=== PATIENT | male | born 1965 | race Caucasian/White ===

== ENCOUNTER 2022-12-27 13:02 | Outpatient (CLI) | payer BC, SELFPAY | END 2022-12-27 13:03 | disposition home or self-care (01) | LOC: FRMREF 13:04 | PROVIDERS: PCP Family Medicine; Visit Provider Family Medicine | DX: Z00.00 Encounter for general adult medical examination without abnormal findings (principal); E78.5 Hyperlipidemia, unspecified; M25.50 Pain in unspecified joint; Z12.5 Encounter for screening for malignant neoplasm of prostate | CPT/HCPCS: 80053; 80061; 84153; 85610; 85613; 85730; 86039; 86140; 86431 ==

== ENCOUNTER 2022-12-27 13:02 | Outpatient (CLI) | payer BC, SELFPAY | END 2022-12-27 13:03 | disposition home or self-care (01) | PROVIDERS: PCP Family Medicine; Visit Provider Family Medicine | DX: Z00.00 Encounter for general adult medical examination without abnormal findings (principal); E78.5 Hyperlipidemia, unspecified; M25.50 Pain in unspecified joint | CPT/HCPCS: 83018 ==

== ENCOUNTER 2023-07-12 12:20 | Outpatient (REF) | payer BC, SELFPAY ==
[2023-07-12 12:38] LABS: Basophils Absolute Auto 0.03 K/uL (0.00-0.30); Basophils Percent Auto 0.4 % (0.0-3.0); Eosinophils Absolute Auto 0.22 K/uL (0.00-0.50); Eosinophils Percent Auto 2.8 % (0.0-7.0); Hematocrit 46.2 % (37.0-53.0); Hemoglobin* 14.4 gm/dL (13.5-17.5); Immature Granulocytes Abs Auto 0.05 K/uL (0.00-0.30); Immature Granulocytes Pct Auto 0.6 %; Lymphocytes Absolute Auto 1.91 K/uL (0.90-2.90); Lymphocytes Percent Auto 24.3 % (20-44); Mean Corpuscular HGB Conc 31 gm/dL (32-36); Mean Corpuscular Hemoglobin 26 pg (26-34); Mean Corpuscular Volume 84 fL (80-100); Monocytes Percent Auto 12.5 % (0.0-11.0); Neutrophils Absolute Auto 4.66 K/uL (1.7-7.0); Neutrophils Percent Auto 59.4 % (42.0-72.0); Platelet Count* 263 K/uL (140-440); RDW Coefficient of Variation % 13.8 % (11.5-15.5); White Blood Count* 7.85 K/uL (4.50-11.00)
[2023-07-12 12:53] LABS: Slide Review Reflex No
[2023-07-12 12:54] LABS: C Reactive Protein* < 0.5 mg/dL (0.5-1.0)
[2023-07-12 13:20] LABS: Erythrocyte SedimentationRate* 3 mm/hr (2-15)
== END 2023-07-12 12:21 | disposition home or self-care (01) ==
LOC: NPINS 12:20
PROVIDERS: PCP Family Medicine; Visit Provider Student in an Organized Health Care Education/Training Program
DX: M25.562 Pain in left knee (principal)
CPT/HCPCS: 85025; 85651; 86140

== ENCOUNTER 2023-08-05 13:45 | Outpatient (RCR) | payer BC, SELFPAY | END 2023-10-07 16:22 | disposition home or self-care (01) | PROVIDERS: PCP Family Medicine; Visit Provider Physician Assistant | DX: S39.012A Strain of muscle, fascia and tendon of lower back, initial encounter (principal); R53.1 Weakness; R52 Pain, unspecified; Z51.89 Encounter for other specified aftercare | CPT/HCPCS: 97032; 97110; 97140; 97161 ==

== ENCOUNTER 2023-11-01 09:58 | Emergency (ER) | payer BC, SELFPAY ==
[2023-11-01 10:04] VITALS: BP 140/85; PULSE 60; RESP 18; TEMP 35.1; O2SAT 98; BMI 33.0
--- NOTE | 2023-11-01 10:04 | ED.GENADULT ---
HPI - General Adult General Time Seen by Provider: 10:04 Date Seen: 11/01/23 Chief complaint: Abdominal Pain Stated complaint: Abdominal pain Time Seen by Provider: 11/01/23 10:03 Source: patient, RN notes reviewed and old records reviewed Mode of arrival: ambulatory Limitations: no limitations History of Present Illness HPI narrative: 58-year-old male who presents today with abdominal pain. Patient presents with right upper quadrant abdominal pain starting earlier today. Nausea with no vomiting, had some diarrhea yesterday. No shortness of breath, no fevers, occasional alcohol use. Related Data Home Medications ?Medication ?Instructions ?Recorded ?Confirmed gljaspxhsoka-ejtonffd-mcglch tablet 1 tab PO QDAY 12/27/22 12/27/22 Previous Rx's ?Medication ?Instructions ?Recorded methocarbamol 500 mg tablet 500 - 1,000 mg (1 - 2 x 500 mg) PO 12/27/22 QID PRN muscle spasm #60 tabs prednisone 20 mg tablet 20 mg PO .COMPLEX #20 tabs 12/27/22 ezetimibe 10 mg tablet (Zetia) 10 mg PO QDAY #90 tabs 12/28/22 ondansetron 4 mg disintegrating 4 mg PO Q6H PRN nausea and 11/01/23 tablet vomiting #20 tabs oxycodone 5 mg capsule 5 mg PO Q6H PRN pain #10 caps 11/01/23 Allergies Allergy/AdvReac Type Severity Reaction Status Date / Time No Known Drug Allergies Allergy Verified 11/01/23 11:57 PFSH PFSH Medical History (Updated 11/01/23 @ 12:04 by Mega Benito MD) Back pain ?M54.9 - Dorsalgia, unspecified (ICD-10) Polyarthralgia ?M25.50 - Pain in unspecified joint (ICD-10) Superficial thrombophlebitis ?I80.9 - Phlebitis and thrombophlebitis of unspecified site (ICD-10) Surgical History (Updated 12/27/22 @ 13:29 by Aamir Osuna MD) Hx of neck surgery ?Z98.890 - Other specified postprocedural states (ICD-10) History of arthroscopy of left knee (11/15/04) ?Z98.890 - Other specified postprocedural states (ICD-10) History of arthroscopy of right shoulder (07/20/13) ?Z98.890 - Other specified postprocedural states (ICD-10) History of arthroplasty of left knee (04/03/17) ?Z96.652 - Presence of left artificial knee joint (ICD-10) Status post laparoscopic appendectomy (05/19/16) ?Z90.49 - Acquired absence of other specified parts of digestive tract (ICD-10) History of colonoscopy ?Z98.890 - Other specified postprocedural states (ICD-10) Family History (Updated 12/20/22 @ 09:10 by Roberto Carlos Kessler) Father Pancreatic cancer Other Breast cancer Social History (Updated 12/20/22 @ 09:10 by Roberto Carlos Kessler) Narrative: alcohol ingestion, 1-4 drinks/week does not use illicit drugs nonsmoker Smoking Status: Never smoker Do you use any of these nicotine containing products: None Second hand tobacco smoke exposure: No How often do you have a drink containing alcohol: 2-4 times a month How many standard drinks containing alcohol do you have on a typical day: 1 or 2 How often do you have six or more drinks on one occasion: Less than monthly AUDIT-C Alcohol total score: 3 Non-prescribed substance use: denies use Little interest or pleasure in doing things: several days Feeling down, depressed, or hopeless: not at all service: No Exam Narrative: Exam Narrative: General: Well-developed and well-nourished, no acute distress Head: Atraumatic and normocephalic Eyes: Pupils are equal reactive, extraocular motions intact, conjunctiva clear ENT: External nose and ears are normal, posterior pharynx without erythema or exudate Neck: No midline cervical tenderness, full spontaneous range of motion the neck, trachea midline, no adenopathy Heart: Regular rate and rhythm no murmurs or thrills Lungs: Clear to auscultation bilaterally without wheezes or crackles Abdomen: Soft, right upper quadrant tenderness, nondistended with active bowel sounds Musculoskeletal: No tenderness, deformity, or edema Neurologic: Awake, alert, and oriented x3, no gross focal neurologic deficits, cranial nerves intact as tested Psych: Mood and affect are appropriate Skin: No rashes Const: Vital Signs, click to edit/add: Vital Signs - 24 hr 11/01/23 10:04 11/01/23 13:47 Temperature 95.1 F L Pulse Rate [Femora l] 60 72 Respiratory Rate 18 18 Blood Pressure [Ri t Upper Arm] 140/85 H 131/81 Pulse Oximetry 98 96 Oxygen Delivery Me thod Room Air Room Air Course Course ED Course: Reviewed most recent office visit from December 2022 which was an annual physical, was concerned about some right knee pain at that time, also reviewed prior history which shows history of appendectomy, left knee replacement, also prior colonoscopy. At that time did admit to not drinking alcohol multiple days a week. Patient presents today with right upper quadrant pain. Marked tenderness of the right upper quadrant although also has high-pitched bowel sounds. Labs are ordered along with CT scan of the abdomen pelvis, consider right upper quadrant ultrasound depending on clinical course and findings. Reevaluation(s) Time of Reevaluation #1: 11:33 Reevaluation #1: Labs ordered and independently interpreted by me with normal CBC, normal basic panel, normal hepatic panel, normal lipase. Time of Reevaluation #2: 11:59 Reevaluation #2: CT scan of the abdomen and pelvis interpreted by me demonstrates some liver cysts, also question of some atelectasis in the lower lobes of the lungs, gallbladder with gallstones. Time of Reevaluation #3: 12:30 Reevaluation #3: The patient rechecked, he remains comfortable, discussed plan for right upper quadrant ultrasound Additional Reevaluation(s): 1:39 p.m. reviewed radiology interpretation of ultrasound, cholelithiasis without acute cholecystitis. Patient is more comfortable now. We discussed symptomatic cholelithiasis. Patient has follow-up with General surgery next week to discuss elective cholecystectomy. Vital Signs Vital signs: Initial Vital Signs Temperature 95.1 F L 11/01/23 10:04 Temperature Source Temporal Artery Scan 11/01/23 10:04 Pulse Rate 60 11/01/23 10:04 Pulse Rhythm Regular 11/01/23 10:04 Respiratory Rate 18 11/01/23 10:04 Blood Pressure 140/85 H 11/01/23 10:04 Blood Pressure Mean 103 11/01/23 10:04 Blood Pressure Position Supine 11/01/23 10:04 Pulse Oximetry 98 11/01/23 10:04 Oxygen Delivery Method Room Air 11/01/23 10:04 Vital Signs Temperature 95.1 F L 11/01/23 10:04 Pulse Rate 60 11/01/23 10:04 Respiratory Rate 18 11/01/23 10:04 Blood Pressure 140/85 H 11/01/23 10:04 Pulse Oximetry 98 11/01/23 10:04 Oxygen Delivery Method Room Air 11/01/23 10:04 Temperature 95.1 F L 11/01/23 10:04 Pulse Rate 72 11/01/23 13:47 Respiratory Rate 18 11/01/23 13:47 Blood Pressure 131/81 11/01/23 13:47 Pulse Oximetry 96 11/01/23 13:47 Oxygen Delivery Method Room Air 11/01/23 13:47 Medications Administered Medications: Discontinued Medications Generic Name Dose Route Start Last Admin Trade Name Freq PRN Reason Stop Dose Admin Hydromorphone HCl 0.5 mg 11/01/23 10:16 11/01/23 10:43 Hydromorphone 0.5 Mg/0.5 Ml Inj IVP 11/01/23 10:17 0.5 mg ONCE ONE Administration Hydromorphone HCl 0.5 mg 11/01/23 11:45 11/01/23 12:14 Hydromorphone 0.5 Mg/0.5 Ml Inj IVP 11/01/23 11:46 0.5 mg ONCE ONE Administration Sodium Chloride 1,000 mls @ 1,000 mls/hr 11/01/23 10:30 11/01/23 11:39 0.9 % Sodium Chloride 1000 Ml IV 11/01/23 11:29 Infused .Q1H SIS Infusion Ondansetron HCl 4 mg 11/01/23 10:16 11/01/23 10:43 Ondansetron 2 Mg/Ml Inj IVP 11/01/23 10:17 4 mg ONCE ONE Administration Medical Decision Making Lab Data Labs: Lab Results 11/01/23 11/01/23 Range/Units 10:38 12:15 WBC 7.34 (4.50-11.00) K/uL RBC 5.21 (4.30-5.90) m/uL Hgb 14.4 (13.5-17.5) gm/dL Hct 43.9 (37.0-53.0) % MCV 84 (80-100) fL MCH 28 (26-34) pg MCHC 33 (32-36) gm/dL RDW Coeff of Leigha 13.8 (11.5-15.5) % Plt Count 223 (140-440) K/uL Neut % (Auto) 74.1 H (42.0-72.0) % Lymph % (Auto) 14.9 L (20-44) % Mcdonald % (Auto) 9.3 (0.0-11.0) % Eos % (Auto) 1.5 (0.0-7.0) % Baso % (Auto) 0.1 (0.0-3.0) % Neut # (Auto) 5.40 (1.7-7.0) K/uL Lymph # (Auto) 1.10 (0.90-2.90) K/uL Mcdonald # (Auto) 0.70 (0.00-0.90) K/UL Eos # (Auto) 0.11 (0.00-0.50) K/uL Baso # (Auto) 0.01 (0.00-0.30) K/uL Abs Immat Gran (auto) 0.01 (0.00-0.30) K/uL Imm/Tot Granulo (auto) 0.1 % Sodium 140 (135-149) mmol/L Potassium 4.2 (3.6-5.1) mmol/L Chloride 108 (96-114) mmol/L Carbon Dioxide 25 (20-32) mmol/L Anion Gap 7 (7-15) mEq/L BUN 17 (7-30) mg/dL Creatinine 1.1 (0.5-1.5) mg/dL Estimated Creat Clear 73.74 Estimated GFR 77 ml/min Glucose 124 H (60-115) mg/dL Calcium 9.5 (8.4-10.6) mg/dL Magnesium 2.1 (1.5-2.6) mg/dL Total Bilirubin 0.7 (0.1-1.5) mg/dL Direct Bilirubin 0.4 (0.0-0.5) mg/dL AST 31 (12-35) U/L ALT 21 (4-50) U/L Alkaline Phosphatase 63 (40-150) U/L Total Protein 7.0 (6.0-8.3) g/dL Albumin 4.5 (3.3-5.0) g/dL Lipase 189 (23-300) U/L Urine Color Yellow (Yellow) Urine Appearance Clear (Clear) Urine pH 5.5 (5.0-8.5) Ur Specific Lincoln 1.015 (1.000-1.030) Urine Protein Negative (Negative) Urine Glucose (UA) Negative (Negative) Urine Ketones Negative (Negative) Urine Blood Negative (Negative) Urine Nitrite Negative (Negative) Urine Bilirubin Negative (Negative) Urine Urobilinogen 0.2 (0.2-1.0) Ur Leukocyte Esterase Negative (Negative) Urine RBC 0-2 (0-2) Urine WBC 0-2 (0-5) Ur Squamous Epith Cells None (None-Few) Urine Bacteria None (None) Discharge Plan Discharge Clinical Impression: Symptomatic cholelithiasis Patient Disposition: Home w/ Parent or Adult Condition: Stable Instructions: Biliary Colic (ED), Gallstones (ED) Additional Instructions: Call [facility] to schedule an appointment to have your gallbladder removed Activity Level: No Restrictions Discharge Diet: Low Fat/Low Cholesterol Prescriptions: New oxycodone 5 mg capsule 5 mg PO Q6H PRN (Reason: pain) Qty: 10 0RF ondansetron 4 mg tablet,disintegrating 4 mg PO Q6H PRN (Reason: nausea and vomiting) Qty: 20 0RF No Action vcpesxwbuqlg-whwmbnjx-nipeis Tablet 1 tab PO QDAY prednisone 20 mg tablet 20 mg PO .COMPLEX Qty: 20 0RF Rx Instructions: 20 mg orally; 60 MG PO DAYS 1 -3, 40 MG DAYS 4-6, 20 MG DAYS 7-9 methocarbamol 500 mg tablet 500 - 1,000 mg PO QID PRN (Reason: muscle spasm) Qty: 60 1RF ezetimibe [Zetia] 10 mg tablet 10 mg PO QDAY Qty: 90 1RF Follow Up/Referrals: Aamir Osuna MD [Primary Care Provider] - Stand Alone Forms: [facility] Info Instructions
--- NOTE | 2023-11-01 10:16 | CRLHL7_ITS ---
For Patients: As a result of the Century Cures Act, medical imaging exams and procedure reports are released immediately into your electronic medical record. You may view this report before your referring provider. If you have questions, please contact your health care provider. INDICATION: RUQ PAIN TECHNIQUE: CT of the abdomen and pelvis was obtained with 112 mL of Isovue 370 intravenous contrast. Please note that all CT scans at this facility use dose modulation, iterative reconstruction, and/or weight-based dosing when appropriate to reduce radiation dose to as low as reasonably achievable. COMPARISON: 02/06/2018 FINDINGS: Lower thorax: Moderate bilateral dependent linear atelectasis. Redemonstration of 6 millimeter right minor fissure perifissural lymph node (3/6). Liver and biliary tree: Redemonstration of hepatic cysts measuring up to 3.2 centimeter in the right liver (2/27). Additional subcentimeter hypoattenuating lesions are too small to characterize and are favored to represent cysts. Gallbladder: Cholelithiasis. Spleen: Normal. Pancreas: Normal. Adrenal glands: Normal. Kidneys and ureters: No hydronephrosis. No obstructing renal calculi. Gastrointestinal tract: Status post appendectomy. No evidence of bowel obstruction. Peritoneal cavity: Normal. Bladder: Mild urinary bladder wall thickening. Pelvic organs: Normal. Vasculature: Normal. Lymph nodes: Normal. Abdominal wall: Trace fat containing periumbilical hernia. Musculoskeletal: Normal. IMPRESSION: 1. Cholelithiasis without CT evidence of acute cholecystitis. 2. Mild urinary bladder wall thickening. Consider correlation with urinalysis. Please note that all CT scans at this facility use dose modulation, iterative reconstruction, and/or weight-based dosing when appropriate to reduce radiation dose to as low as reasonably achievable. Dictated by Caleb Cobian MD @ 11/01/2023 12:19:34 PM (Electronically Signed)
[2023-11-01] MEDS: 0.9 % SODIUM CHLORIDE 1000 ml 1,000 ML IV (10:40)
[2023-11-01] MEDS: HYDROmorphone 0.5 mg/0.5 ml inj IVP ×2 (10:43→12:14)
[2023-11-01] MEDS: ONDANSETRON 2 MG/ML inj 4 MG IVP (10:43)
[2023-11-01 10:53] LABS: Basophils Absolute Auto 0.01 K/uL (0.00-0.30); Basophils Percent Auto 0.1 % (0.0-3.0); Eosinophils Absolute Auto 0.11 K/uL (0.00-0.50); Eosinophils Percent Auto 1.5 % (0.0-7.0); Hematocrit 43.9 % (37.0-53.0); Hemoglobin* 14.4 gm/dL (13.5-17.5); Immature Granulocytes Abs Auto 0.01 K/uL (0.00-0.30); Immature Granulocytes Pct Auto 0.1 %; Lymphocytes Percent Auto 14.9 % (20-44); Mean Corpuscular HGB Conc 33 gm/dL (32-36); Mean Corpuscular Hemoglobin 28 pg (26-34); Mean Corpuscular Volume 84 fL (80-100); Monocytes Percent Auto 9.3 % (0.0-11.0); Neutrophils Percent Auto 74.1 % (42.0-72.0); Platelet Count* 223 K/uL (140-440); RDW Coefficient of Variation % 13.8 % (11.5-15.5); Red Blood Count 5.21 m/uL (4.30-5.90); White Blood Count* 7.34 K/uL (4.50-11.00)
[2023-11-01 10:55] LABS: Slide Review Reflex No
[2023-11-01 11:05] LABS: Albumin* 4.5 g/dL (3.3-5.0); Chloride* 108 mmol/L (96-114)
[2023-11-01 11:06] LABS: Potassium* 4.2 mmol/L (3.6-5.1); Sodium* 140 mmol/L (135-149)
[2023-11-01 11:08] LABS: Anion Gap 7 mEq/L (7-15); Carbon Dioxide* 25 mmol/L (20-32); Creatinine* 1.1 mg/dL (0.5-1.5); Est. Creatinine Clearance* 73.74; Estimated Glomerular Filt Rate 77 ml/min
[2023-11-01 11:09] LABS: Alanine Aminotransferase* 21 U/L (4-50); Alkaline Phosphatase* 63 U/L (40-150); Aspartate Amino Transferase* 31 U/L (12-35); Bilirubin Direct* 0.4 mg/dL (0.0-0.5); Bilirubin Total* 0.7 mg/dL (0.1-1.5); Blood Urea Nitrogen* 17 mg/dL (7-30); Calcium* 9.5 mg/dL (8.4-10.6); Glucose* 124 mg/dL (60-115); Lipase* 189 U/L (23-300); Magnesium* 2.1 mg/dL (1.5-2.6)
[2023-11-01 12:24] LABS: Appearance Urine Clear (Clear); Bilirubin Urine Negative (Negative); Blood Urine Negative (Negative); Color Urine Yellow (Yellow); Glucose Urine Negative (Negative); Ketones Urine Negative (Negative); Leukocyte Esterase Urine Negative (Negative); Nitrite Urine Negative (Negative); Protein Urine Negative (Negative); Specific Gravity Urine 1.015 (1.000-1.030); Urobilinogen Urine 0.2 (0.2-1.0); pH Urine 5.5 (5.0-8.5)
--- NOTE | 2023-11-01 12:25 | CRLHL7_ITS ---
For Patients: As a result of the Century Cures Act, medical imaging exams and procedure reports are released immediately into your electronic medical record. You may view this report before your referring provider. If you have questions, please contact your health care provider. Indication: Right upper quadrant abdominal pain Technique: Multiple transverse and longitudinal sonographic grayscale images of the right upper quadrant of the abdomen were obtained, supplemented with color, power, and spectral Doppler imaging. Comparison: Same day CT. Findings: Suboptimal examination secondary to bowel gas. CBD: 0.5 Cm. Gallbladder: Negative sonographic Estevez sign. Cholelithiasis and sludge. Impression: Cholelithiasis without sonographic evidence of acute cholecystitis. Dictated by Caleb Cobian MD @ 11/01/2023 1:06:59 PM (Electronically Signed)
[2023-11-01 12:33] LABS: RBC Urine 0-2 (0-2); WBC Urine 0-2 (0-5)
[2023-11-01 13:47] VITALS: BP 131/81; PULSE 72; RESP 18; O2SAT 96
[2023-11-01] MEDS: KETOROLAC 15 MG/ML inj IVP (14:22)
== END 2023-11-01 14:31 | disposition home or self-care (01) ==
PROVIDERS: Emergency Provider Family Medicine; PCP Family Medicine
DX: K80.80 Other cholelithiasis without obstruction (principal)
CPT/HCPCS: 36415; 74177; 76705; 80048; 80076; 81001; 83690; 83735; 85025; 93005; 99284; 99285; J1170; J1885; J2405; J7030; Q9967

== ENCOUNTER 2023-12-09 06:11 | Day surgery (SDC) | payer BC, SELFPAY ==
[2023-12-09] VITALS (13 sets, daily range): BP systolic 108–133; BP diastolic 69–85; PULSE 64–83; RESP 12–16; TEMP 36.1–36.9; O2SAT 89–97; BMI 33.5
[2023-12-09] MEDS: LACTATED RINGERS 1000 ML 1,000 ML 100 ML IV ×2 (06:53→09:28)
[2023-12-09] MEDS: SODIUM CHLORIDE 0.9 % (FLUSH) 10 ML SYRINGE IVF (06:54)
--- NOTE | 2023-12-09 07:13 | W.ANESCHARGE ---
Anesthesia Charges Start Date/Time Anesthesia Start Date: 12/09/23 Anesthesia Start Time: 07:25 Stop Date/Time Anesthesia Stop Date: 12/09/23 Anesthesia Stop Time: 09:34
--- NOTE | 2023-12-09 07:18 | W.PM.H&PU ---
History & Physical Update History & Physical Update H&P Reviewed and patient assessed: No changes noted
--- NOTE | 2023-12-09 07:24 | P.GSOP_ITS ---
Operative Note Date of procedure: 12/09/23 Pre-op diagnosis: 1. Symptomatic cholelithiasis. 2. Possible chronic cholecystitis. Post-op diagnosis: 1. Symptomatic cholelithiasis. 2. Chronic cholecystitis. Type of Procedure: 1. Laparoscopic cholecystectomy. Indications: 58-year-old male was seen in clinic for evaluation of recurrent episodes of right upper quadrant pain. Patient's latest painful episode was described as constant and sharp and radiating to his back. The pain started after eating greasy food for dinner. Patient was seen in the emergency room and had normal lipase normal liver function tests. He had a normal WBC. An abdominal CT was obtained that showed cholelithiasis. A gallbladder ultrasound was then obtained that showed cholelithiasis, the gallbladder wall was 3 mm thick the common bile duct was 5 mm. On clinical exam patient had tenderness to palpation in the right upper quadrant with negative Estevez sign. Given patient's clinical history and his physical exam, biliary colic and possible chronic cholecystitis was suspected, laparoscopic cholecystectomy was recommended. The procedure was discussed in detail. The risks associated procedure including infection, bleeding, injury to intra-abdominal organs, injury to the common bile duct, and the need for additional procedures were all discussed with the patient, and he agreed to proceed. Procedure Description: After discussing the risks and benefits of the procedure, the patient signed informed consent.? The operative site was marked and the patient was brought to the operating room and placed on the operating table in supine position.? Care was taken to pad the patient's pressure points.?? The patient was then intubated by anesthesia.?? The operative site was then prepped and draped in the usual sterile fashion.? A time-out was then performed. A 5-mm laparoscopy port was placed in the left upper quadrant guided by a 5-mm laparoscope placed into a translucent trochar.~ Passage through the layers of the abdominal wall was visualized with the laparoscope.~ A pneumoperitoneum was established. A 0-degree 5-mm laparoscope was advanced into the abdomen. The abdomen was briefly surveyed, and no adhesions were noted. A 10-mm port were placed supraumbilically and two more 5 mm ports were placed on the right under direct visualization by laparoscope. The camera was then changed to 10 mm 30- degree scope and placed into the abdomen through the 10 mm port. The left upper quadrant port entrance was examined and no injury to intra-abdominal organs was identified. The gallbladder was identified, the fundus grasped and retracted cephalad. The infundibulum was covered with fatty layer. This was dissected bluntly and with hook cautery. The tissues overlying the infundibulum were will adherent to the infundibulum and this dissection was tedious and took a long time to prevent injury to the portal structures. The cystic artery was located just anterior to the cystic duct. This was dissected circumferentially bluntly with [place] grasper. The cystic artery was then clipped with 2 5 mm clips on the patient's side and a single clip on the specimen side and divided. This allowed better visualization of the infundibulum and the cystic duct. The infundibulum was grasped and retracted laterally, exposing the peritoneum overlying the triangle of Calot. Small vascular branches were overlying the infundibulum medially and anteriorly. Those were bluntly dissected with [place] grasper. The small branches were divided with hook cautery. Arterial bleeding was seen from 1 of the branches and this was controlled with 5 mm clip. Common bile duct was not identified but care was taken not to injure it. The cystic duct was clearly identified and bluntly dissected circumferentially. I stayed distal on the cystic duct near the infundibulum to avoid injury to the portal structures. The cystic duct was then clipped with 2 5 mm clips on the patient's side and 2 clips on the infundibulum side and divided with scissors. 0-0 PDS endoloop was then placed just proximal to the cystic duct stump clips to avoid a bile leak. The gallbladder was dissected from the liver bed in retrograde fashion using hookcautery. The gallbladder was intrahepatic. At least 2 openings were made in the gallbladder wall during this dissection. Small amount of bile spilled into the abdominal cavity. This was suctioned out. When the gallbladder was free, it was placed into an Endo-Catch bag and removed through the supraumbilical incision. The fascia of the supraumbilical incision had to be bluntly enlarged to accommodate removal of the gallbladder. Surgical site was examined for bleeding. No bleeding was seen in the surgical field. The fascia of the supraumbilical incision was then closed with 0-0 vicryl sutures under direct visualization. Pneumoperitoneum was completely reduced after viewing removal of the trocars under direct vision. The skin was then closed with 4-0 monocryl and steristrips were applied. Instrument, sponge, and needle counts were correct at closure and at the conclusion of the case. The patient was transferred to PACU in stable condition. Findings: Tissues surrounding the gallbladder were difficult to bluntly dissect of the gallbladder suggestive of chronic inflammation. Anesthesia: GETA Surgeon: Marcia Gipson MD Estimated blood loss (mL): 10 Specimen: Gallbladder Condition: stable Disposition: PACU
[2023-12-09] MEDS: CEFAZOLIN 2 GM INJ IVP (07:40)
[2023-12-09] MEDS: BUPIVACAINE 0.25% 30 ML 10 ML INJECTION (07:48)
--- NOTE | 2023-12-09 07:51 | SUR.OPER ---
PATIENT QUESTIONS ANSWERED SATISFACTORILY PREOPERATIVELY. PATIENT BROUGHT TO OR #4 PER CART. Patient positioned supine on OR #4 bed. The perioperative team supported arms bilaterally on arm boards. Final approval of positioning by surgeon.
--- NOTE | 2023-12-09 10:08 | SUR.PHASEI ---
patient arrived to pacu with reddness & rashy appearing skin along the adhesive part of the operating room drape used for procedure-- 1009--checked abdomen-rash less pronounced, reddness starting to fade. patient denies any itching or allergies to latex or adhesive.
[2023-12-09] MEDS: HYDROCODONE-ACETAMIN 5-325 MG 1 TAB PO (10:56)
--- NOTE | 2023-12-09 11:11 | W.ANESCHARGE ---
Anesthesia Charges Start Date/Time Anesthesia Start Date: 12/09/23 Anesthesia Start Time: 07:25 Stop Date/Time Anesthesia Stop Date: 12/09/23 Anesthesia Stop Time: 09:34
== END 2023-12-09 11:27 | disposition home or self-care (01) ==
PROVIDERS: PCP Family Medicine; Visit Provider Surgery
PROC: 0FT44ZZ Resection of Gallbladder, Percutaneous Endoscopic Approach (ICD-10-PCS; CPT 47562; principal; 2023-12-09 07:30)
DX: K80.10 Calculus of gallbladder with chronic cholecystitis without obstruction (principal)
CPT/HCPCS: 47562; 00790; 88304; A9270; J0330; J0665; J0690; J1100; J2250; J2405; J2704; J2710; J3010; J7120

== ENCOUNTER 2024-08-27 09:35 | Outpatient (CLI) | payer BC, SELFPAY | END 2024-08-27 09:36 | disposition home or self-care (01) | PROVIDERS: PCP Family Medicine; Visit Provider Family Medicine | DX: E78.5 Hyperlipidemia, unspecified (principal); R53.83 Other fatigue; M25.50 Pain in unspecified joint; M54.9 Dorsalgia, unspecified; Z12.5 Encounter for screening for malignant neoplasm of prostate | CPT/HCPCS: 80053; 80061; 84443; 86618; G0103 ==

== ENCOUNTER 2024-09-15 18:16 | Emergency (ER) | payer BC, SELFPAY ==
--- OUTSIDE RECORDS SUMMARY | 2024-09-15 18:19 | XMS_ITS | Clinical Summary ---
Author Organization [employer] [facility] Address [address] [place] [address] Care Team Providers Care District Agent Name Role Phone Max Biswas MD Primary Care Provider [phone] Allergies No known active allergies Medications baclofen (LIORESAL) 10 mg tabletIndication s:Back spasm TAKE 1/2 TABLET BY MOUTH UP TO 3 TIMES DAILY, MAY INCREASE TO 1 TAB UP TO 3 TIMES DAILY IF NEEDED 45 tablet 2 8 Active oxyCODONE (ROXICODONE) 5 mg immediate release tabletIndication s:Acute midline low back pain with left-sided sciatica Take 1 tab daily as needed for severe pain. Use least amount possible. For Chronic pain. 30 tablet 9 Active SUMAtriptan (IMITREX) 25 mg tabletIndication s:Migraine with aura, not intractable, without status migrainosus Take 1 tablet by mouth every 2 hours if needed for Migraine. Max dose: 200mg per 24 hrs. 9 tablet 11 9 Active Active Problems Problem Noted Date Diagnosed Date Bulging lumbar disc 02/19/2017 Overview (02/19/2017): ~ February 2017: L4-L5 Interlaminar epidural steroid injection by Dr. Taylor. Chronic pain of left knee 02/28/2016 Routine adult health maintenance 01/21/2015 Overview (01/21/2015): Colonoscopy 01/2015 normal repeat in 10 years Rupture of proximal biceps tendon 02/17/2013 Overview (06/25/2013): October 2012: right side, leopoldo jiang at home. Jun 2013: MRI of shoulder shows partial tear of RC, labral tear, and long head biceps torn. Mixed hyperlipidemia 08/18/2009 Overview (02/02/2015): Years ago had myalgia with Simvastatin (Zocor). Jan 2015: LDL was 191, but ASCVD 10 yr risk 4.8%. Regular astigmatism 07/09/2007 Presbyopia 07/09/2007 Hypermetropia 07/09/2007 Immunizations Immunization Administration Dates Next Due Hepatitis B (Adult) 03/23/2019,10/01/2018,2018 Td (Age >=7 Years) 10/01/2018,12/30/2007 Family History Medical History Relation Name Comments Cancer Father pancreatic. d at 70 Other Father glaucoma Cancer-breast Mother at 61 Cancer Paternal Grandfather liver c ancer Arthritis Paternal Grandmother Relation Name Status Comments Father Mother Paternal Grandfather Paternal Grandmother Social History Tobacco Use Types Packs/Day Years Used Date Smoking Tobacco: Never Smokeless Tobacco: Never Tobacco Cessation:Counseling Given: Yes Alcohol Use Standard Drinks/Week Comments Yes 2 (1 standard drink = 0.6 oz pur e alcohol) 2019: 3 a week. 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 Not on file Not on file Obstetrics History Last Filed Vital Signs Vital Sign Reading Time Taken Comments Blood Pressure 112/74 04/10/2019 1:16 PM DATA LEAD Pulse 64 04/10/2019 1:16 PM DATA LEAD Temperature 36.8 C (98.3 F) 03/21/2017 2:33 PM CDT Respiratory Rate - - Oxygen Saturation 96% 03/21/2017 2:33 PM CDT Inhaled Oxygen Concentration - - Weight 102.1 kg (225 lb) 04/10/2019 1:16 PM DATA LEAD Height 176.5 cm (5' 9.49) 04/10/2019 1:16 PM CS T Body Mass Index 32.76 04/10/2019 1:16 PM DATA LEAD Plan of Treatment Health Maintenance Due Date Last Done Comments HIV for age 15-65 1978 Hepatitis C screening for ag e 18-79 1981 Pneumococcal series for age 50+ (1 of 1 - PCV) 2013 Zoster (shingles) series for age 50+ (1 of 2) 2013 BMI (ht and wt on same day) for age 18+ 04/10/2020 04/10/2019, 08/01/2018, 02/06/2018, Additional history exists Depression screening for age 12+ 04/10/2020 04/10/2019, 04/10/2019, 02/06/2018, Additional history exists COVID-19 vaccine series ( - 2023- season) 2024 Lipids for age 45-75 04/10/2024 04/10/2019, 01/28/2015, 05/04/2011 Influenza Vaccine (Season Ended) 2025 Colonoscopy through age 75 01/21/2025 01/21/2015 Tetanus booster 10/01/2028 10/01/2018, 12/30/2007 RSV vaccine for adults or (1 - 1-dose 75+ series) 2038 Tdap Completed 12/31/2007 Procedures Procedure Name Priority Date/Time Associated Diagnosis Comments LIPID PANEL W REFLEX MEASURED LDL Routine 04/10/2019 2:27 PM DATA LEAD Screening cholesterol level from Last 3 Months or Most Recently Relevant to Health Maintenance Results * (ABNORMAL) LIPID PANEL W REFLEX MEASURED LDL (04/10/2019 2:27 PM DATA LEAD) CHOLESTEROL,TOTAL 244(H) 100 - 199 mg/dL 04/10/2019 8:23 PM DATA LEAD [facility] TRIGLYCERIDES 95 <150 mg/dL 04/10/2019 8:23 PM DATA LEAD [facility] HDL CHOLESTEROL 55 >40 mg/dL 9 8:23 PM DATA LEAD [facility] NON-HDL CHOLESTEROL 189(H) <145 mg/dl 04/10/2019 8:23 PM DATA LEAD [facility] CHOL/HDL RATIO 4.44 <4.50 04/10/2019 8:23 PM DATA LEAD [facility] LDL CHOLESTEROL 170(H) <=130 mg/dL 04/10/2019 8:23 PM DATA LEAD [facility] PROVIDER ORDERED STATUS FASTING 04/10/2019 8:23 PM DATA LEAD [facility] Blood BLOOD SPECIMEN / Unknown Venipuncture / Unknown 04/10/2019 2:27 PM DATA LEAD 04/10/2019 2:27 PM DATA LEAD us Max Biswas MD CHEMISTRY Final Res ult [facility] [address] [place] [address], from Last 3 Months or Most Recently Relevant to Health Maintenance Care Teams District Agent Relationship Specialty Start Date End Date Max Biswas MD PCP - General Family Practice 06/12/13
[2024-09-15 18:56] VITALS: BP 157/101; PULSE 81; RESP 16; TEMP 36.6; O2SAT 95; BMI 33.0
--- NOTE | 2024-09-15 19:14 | ED.SKABFB ---
HPI - Skin/Abscess/Foreign Bdy General Time Seen by Provider: 19:15 Date Seen: 09/15/24 Chief complaint: Skin/Abscess/Foreign Body Stated complaint: cellulitis Time Seen by Provider: 09/15/24 19:08 Source: patient, RN notes reviewed and old records reviewed Mode of arrival: ambulatory Limitations: no limitations History of Present Illness HPI narrative: 59-year-old male who comes in today with left leg pain. Patient scraped this from the leg with a pallet at work couple of days ago, noticed increased pain and swelling after that. Patient was seen at urgent care 2 days ago, diagnosed with cellulitis and started on Keflex which he has been taking but has not noticed much improvement. He denies fevers, chills, nausea, vomiting but notes decreased appetite. Denies numbness or tingling in the foot. Related Data Home Medications ?Medication ?Instructions ?Recorded ?Confirmed [id number] tablet 1 tab PO QDAY 12/27/22 09/13/24 Previous Rx's ?Medication ?Instructions ?Recorded terbinafine HCl 1 % topical cream 1 applic topical BID #30 grams 07/06/24 (Lamisil AT) diclofenac sodium 50 mg 50 mg PO BID #60 tabs 08/27/24 tablet,delayed release gabapentin 300 mg capsule 300 mg PO TID #90 caps 08/27/24 tizanidine 4 mg tablet 4 mg PO Q8H PRN muscle spasticity 08/27/24 #60 tabs cephalexin 500 mg capsule 500 mg PO BID 7 days #14 caps 09/13/24 Allergies Allergy/AdvReac Type Severity Reaction Status Date / Time No Known Drug Allergies Allergy Verified 09/13/24 11:13 [facility] Medical History Chronic pain ?G89.29 - Other chronic pain (ICD-10) Back pain ?M54.9 - Dorsalgia, unspecified (ICD-10) Polyarthralgia ?M25.50 - Pain in unspecified joint (ICD-10) Superficial thrombophlebitis ?I80.9 - Phlebitis and thrombophlebitis of unspecified site (ICD-10) Surgical History S/P laparoscopic cholecystectomy ?Z90.49 - Acquired absence of other specified parts of digestive tract (ICD-10) Hx of neck surgery ?Z98.890 - Other specified postprocedural states (ICD-10) History of arthroscopy of left knee (11/15/04) ?Z98.890 - Other specified postprocedural states (ICD-10) History of arthroscopy of right shoulder (07/20/13) ?Z98.890 - Other specified postprocedural states (ICD-10) History of arthroplasty of left knee (04/03/17) ?Z96.652 - Presence of left artificial knee joint (ICD-10) Status post laparoscopic appendectomy (05/19/16) ?Z90.49 - Acquired absence of other specified parts of digestive tract (ICD-10) History of colonoscopy ?Z98.890 - Other specified postprocedural states (ICD-10) Family History Father Pancreatic cancer Other Breast cancer Social History Narrative: alcohol ingestion, 1-4 drinks/month does not use illicit drugs nonsmoker Patient works for [employer] and also [employer]. Smoking Status: Never smoker Do you use any of these nicotine containing products: None Second hand tobacco smoke exposure: No How often do you have a drink containing alcohol: 2-4 times a month How many standard drinks containing alcohol do you have on a typical day: 1 or 2 How often do you have six or more drinks on one occasion: Less than monthly AUDIT-C Alcohol total score: 3 Non-prescribed substance use: denies use service: No Exam Narrative: Exam Narrative: General: Well-developed and well-nourished, no acute distress Head: Atraumatic and normocephalic Eyes: Pupils are equal reactive, extraocular motions intact, conjunctiva clear ENT: External nose and ears are normal, posterior pharynx without erythema or exudate Neck: No midline cervical tenderness, full spontaneous range of motion the neck, trachea midline, no adenopathy Heart: Regular rate and rhythm no murmurs or thrills Lungs: Clear to auscultation bilaterally without wheezes or crackles Abdomen: Soft, nontender, nondistended with active bowel sounds Musculoskeletal: No tenderness, deformity, or edema Neurologic: Awake, alert, and oriented x3, no gross focal neurologic deficits, cranial nerves intact as tested Psych: Mood and affect are appropriate Skin: Left lower extremity is larger comparison to the right which patient says is normal, there are several areas of violaceous discoloration anteriorly with erythematous pinpoint petechiae Const: Vital Signs, click to edit/add: Vital Signs - 24 hr 09/15/24 18:56 Temperature 97.8 F Pulse Rate [Pulse Oximeter] 81 Respiratory Rate 16 Blood Pressure [Ri ght Upper Arm] 157/101 H Pulse Oximetry 95 Oxygen Delivery Me thod Room Air Course Course ED Course: Reviewed urgent care note from September 13 when patient was seen with a rash on the left lower leg, diagnosed with cellulitis and started on Keflex 500mg twice a day. Patient presents today with continued redness and pain of the left lower leg after minor trauma couple days ago. On exam here, violaceous discolored macules with surrounding pinpoint erythematous papules. No calf tenderness, dorsalis pedis pulses intact, no pain with passive movement of the calf, clinically no indication of DVT and no evidence of compartment syndrome. Concern for possible infected hematomas with poor response to subtherapeutic Keflex dosing. Labs are ordered, Rocephin IV and oral doxycycline will be given. If labs are reassuring, plan to discharge with increased dose of Keflex as well as doxycycline. Reevaluation(s) Time of Reevaluation #1: 20:45 Reevaluation #1: Labs independently interpreted by me with normal CBC, normal basic panel. Patient is stable for discharge with increased dose of Keflex and addition of doxycycline, follow-up with primary care in 1 week. Vital Signs Vital signs: Initial Vital Signs Temperature 97.8 F 09/15/24 18:56 Temperature Source Temporal Artery Scan 09/15/24 18:56 Pulse Rate 81 09/15/24 18:56 Respiratory Rate 16 09/15/24 18:56 Blood Pressure 157/101 H 09/15/24 18:56 Blood Pressure Mean 119 H 09/15/24 18:56 Blood Pressure Position Sitting 09/15/24 18:56 Pulse Oximetry 95 09/15/24 18:56 Oxygen Delivery Method Room Air 09/15/24 18:56 Vital Signs Temperature 97.8 F 09/15/24 18:56 Pulse Rate 81 09/15/24 18:56 Respiratory Rate 16 09/15/24 18:56 Blood Pressure 157/101 H 09/15/24 18:56 Pulse Oximetry 95 09/15/24 18:56 Oxygen Delivery Method Room Air 09/15/24 18:56 Temperature 97.8 F 09/15/24 18:56 Pulse Rate 81 09/15/24 18:56 Respiratory Rate 16 09/15/24 18:56 Blood Pressure 157/101 H 09/15/24 18:56 Pulse Oximetry 95 09/15/24 18:56 Oxygen Delivery Method Room Air 09/15/24 18:56 Medications Administered Medications: Discontinued Medications Generic Name Dose Route Start Last Admin Trade Name Freq PRN Reason Stop Dose Admin Doxycycline Hyclate 100 mg 09/15/24 19:31 09/15/24 19:37 Doxycycline Hyclate 100 Mg PO 09/15/24 19:32 100 mg ONCE ONE Administration Ceftriaxone Sodium 2 gm/ 100 mls @ 200 mls/hr 09/15/24 19:31 09/15/24 20:11 Sodium Chloride IVPB 09/15/24 19:32 Infused ONCE ONE Infusion MDM - Skin/Abscess/Foreign Bdy Lab Data Labs: Lab Results 09/15/24 Range/Units 19:35 WBC 8.31 (4.50-11.00) K/uL RBC 4.88 (4.30-5.90) m/uL Hgb 14.2 (13.5-17.5) gm/dL Hct 43.1 (37.0-53.0) % MCV 88 (80-100) fL MCH 29 (26-34) pg MCHC 33 (32-36) gm/dL RDW Coeff of Leigha 12.4 (11.5-15.5) % Plt Count 206 (140-440) K/uL Neut % (Auto) 67.0 (42.0-72.0) % Lymph % (Auto) 17.6 L (20-44) % [place] % (Auto) 12.6 H (0.0-11.0) % Eos % (Auto) 2.0 (0.0-7.0) % Baso % (Auto) 0.4 (0.0-3.0) % Neut # (Auto) 5.57 (1.7-7.0) K/uL Lymph # (Auto) 1.50 (0.90-2.90) K/uL [place] # (Auto) 1.00 H (0.00-0.90) K/UL Eos # (Auto) 0.17 (0.00-0.50) K/uL Baso # (Auto) 0.03 (0.00-0.30) K/uL Abs Immat Gran (auto) 0.03 (0.00-0.30) K/uL Imm/Tot Granulo (auto) 0.4 % Sodium 140 (135-149) mmol/L Potassium 4.1 (3.6-5.1) mmol/L Chloride 105 (96-114) mmol/L Carbon Dioxide 27 (20-32) mmol/L Anion Gap 8 (7-15) mEq/L BUN 14 (7-30) mg/dL Creatinine 1.1 (0.5-1.5) mg/dL Estimated Creat Clear 72.82 Estimated GFR 76 ml/min Glucose 94 (60-115) mg/dL Calcium 9.3 (8.4-10.6) mg/dL Discharge Plan Discharge Clinical Impression: Cellulitis, Infected hematoma Patient Disposition: Home, Self-Care Condition: Stable Instructions: Wound Infection (DC), Cellulitis (ED) Additional Instructions: Continue Keflex at increased dose of 4 times a day Start doxycycline twice a day Apply Matthew wrap as tolerated, elevate as able Follow-up with primary care in 1 week Activity Level: Activity as Tolerated Discharge Diet: Regular Prescriptions: No Action [id number] Tablet 1 tab PO QDAY terbinafine HCl [Lamisil AT] 1 % cream 1 applic topical BID Qty: 30 1RF cephalexin 500 mg capsule 500 mg PO BID 7 Days Qty: 14 0RF tizanidine 4 mg tablet 4 mg PO Q8H PRN (Reason: muscle spasticity) Qty: 60 1RF gabapentin 300 mg capsule 300 mg PO TID Qty: 90 0RF diclofenac sodium 50 mg tablet,delayed release (DR/EC) 50 mg PO BID Qty: 60 1RF Follow Up/Referrals: Aamir Osuna MD [Primary Care Provider] - [facility] Alone [facility] Inst[facility]
[2024-09-15] MEDS: DOXYCYCLINE HYCLATE 100 MG PO (19:37)
[2024-09-15] MEDS: cefTRIAXone 2 GM in 0.9 % SODIUM CHLORIDE Mini-bag 100 ML IVPB (19:37)
--- OUTSIDE RECORDS SUMMARY | 2024-09-15 19:49 | XMS_ITS | Clinical Summary ---
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 on file Not on file Obstetrics History Last Filed Vital Signs Vital Sign Reading Time Taken Comments Blood Pressure 112/74 04/10/2019 1:16 PM BURN NURSE Pulse 64 04/10/2019 1:16 PM BURN NURSE Temperature 36.8 C (98.3 F) 03/21/2017 2:33 PM CDT Respiratory Rate - - Oxygen Saturation 96% 03/21/2017 2:33 PM CDT Inhaled Oxygen Concentration - - Weight 102.1 kg (225 lb) 04/10/2019 1:16 PM BURN NURSE Height 176.5 cm (5' 9.49) 04/10/2019 1:16 PM CS T Body Mass Index 32.76 04/10/2019 1:16 PM BURN NURSE Plan of Treatment Health Maintenance Due Date [...] REFLEX MEASURED LDL Routine 04/10/2019 2:27 PM BURN NURSE Screening cholesterol level from Last 3 Months or Most Recently Relevant to Health Maintenance Results * (ABNORMAL) LIPID PANEL W REFLEX MEASURED LDL (04/10/2019 2:27 PM BURN NURSE) CHOLESTEROL,TOTAL 244(H) 100 - 199 mg/dL 04/10/2019 8:23 PM BURN NURSE [facility] TRIGLYCERIDES 95 <150 mg/dL 04/10/2019 8:23 PM BURN NURSE [facility] HDL CHOLESTEROL 55 >40 mg/dL 9 8:23 PM BURN NURSE [facility] NON-HDL CHOLESTEROL 189(H) <145 mg/dl 04/10/2019 8:23 PM BURN NURSE [facility] CHOL/HDL RATIO 4.44 <4.50 04/10/2019 8:23 PM BURN NURSE [facility] LDL CHOLESTEROL 170(H) <=130 mg/dL 04/10/2019 8:23 PM BURN NURSE [facility] PROVIDER ORDERED STATUS FASTING 04/10/2019 8:23 PM BURN NURSE [facility] Blood BLOOD SPECIMEN / Unknown Venipuncture / Unknown 04/10/2019 2:27 PM BURN NURSE 04/10/2019 2:27 PM BURN NURSE us Max Biswas MD CHEMISTRY Final Res ult [facility] [address] [place] [address], from Last 3 Months or Most Recently Relevant to Health Maintenance Care Teams Clinic Director Relationship Specialty Start Date End Date Max Biswas MD PCP - General Family Practice 06/12/13
[2024-09-15 19:59] LABS: Basophils Absolute Auto 0.03 K/uL (0.00-0.30); Basophils Percent Auto 0.4 % (0.0-3.0); Eosinophils Absolute Auto 0.17 K/uL (0.00-0.50); Hematocrit 43.1 % (37.0-53.0); Hemoglobin* 14.2 gm/dL (13.5-17.5); Immature Granulocytes Abs Auto 0.03 K/uL (0.00-0.30); Immature Granulocytes Pct Auto 0.4 %; Lymphocytes Percent Auto 17.6 % (20-44); Mean Corpuscular HGB Conc 33 gm/dL (32-36); Mean Corpuscular Hemoglobin 29 pg (26-34); Mean Corpuscular Volume 88 fL (80-100); Monocytes Percent Auto 12.6 % (0.0-11.0); Neutrophils Absolute Auto 5.57 K/uL (1.7-7.0); Platelet Count* 206 K/uL (140-440); RDW Coefficient of Variation % 12.4 % (11.5-15.5); Red Blood Count 4.88 m/uL (4.30-5.90); White Blood Count* 8.31 K/uL (4.50-11.00)
[2024-09-15 20:03] LABS: Chloride* 105 mmol/L (96-114); Potassium* 4.1 mmol/L (3.6-5.1); Sodium* 140 mmol/L (135-149)
[2024-09-15 20:06] LABS: Anion Gap 8 mEq/L (7-15); Blood Urea Nitrogen* 14 mg/dL (7-30); Carbon Dioxide* 27 mmol/L (20-32); Creatinine* 1.1 mg/dL (0.5-1.5); Est. Creatinine Clearance* 72.82; Estimated Glomerular Filt Rate 76 ml/min
[2024-09-15 20:07] LABS: Calcium* 9.3 mg/dL (8.4-10.6); Glucose* 94 mg/dL (60-115)
[2024-09-15 20:28] LABS: Slide Review Reflex No
[2024-09-15 21:04] VITALS: BP 145/85; PULSE 85; RESP 16; TEMP 36.6; O2SAT 95
[2024-09-15 21:05] VITALS: BP 145/85; PULSE 85; RESP 16; TEMP 36.6
== END 2024-09-15 21:05 | disposition home or self-care (01) ==
PROVIDERS: Emergency Provider Family Medicine; PCP Family Medicine
DX: L03.116 Cellulitis of left lower limb (principal)
CPT/HCPCS: 36415; 80048; 85025; 96365; 99283; 99284; A9270; J0696

== ENCOUNTER 2024-12-14 12:47 | Outpatient (CLI) | payer BC, SELFPAY | END 2024-12-14 12:48 | disposition home or self-care (01) | LOC: US 12:49 | PROVIDERS: PCP Family Medicine; Visit Provider Family Medicine | DX: I87.2 Venous insufficiency (chronic) (peripheral) (principal); I80.9 Phlebitis and thrombophlebitis of unspecified site | CPT/HCPCS: 93970 ==

== ENCOUNTER 2025-03-02 06:21 | Outpatient (CLI) | payer BC, SELFPAY ==
--- NOTE | 2025-03-02 07:44 | P.ANES_ITS ---
Anesthesia Charges Start Date/Time Anesthesia Start Date: 03/02/25 Anesthesia Start Time: 07:20 Stop Date/Time Anesthesia Stop Date: 03/02/25 Anesthesia Stop Time: 07:42 Coding CPT Codes CPT Codes: ROSEANNA LWR INTST NDSC NOS - 57094 ([id number]) P2 - PATIENT W/MILD SYST DISEASE, QK - SAWSMITH 2-4 CNCRNT ANES PROC, QX - DISCOTHEQUE DANCER SVC W/ MD MED DIRECTION
--- NOTE | 2025-03-02 07:44 | W.ANESCHARGE ---
Anesthesia Charges Start Date/Time Anesthesia Start Date: 03/02/25 Anesthesia Start Time: 07:20 Stop Date/Time Anesthesia Stop Date: 03/02/25 Anesthesia Stop Time: 07:42 Coding CPT Codes CPT Codes: ROSEANNA LWR INTST NDSC NOS - 73633 ([id number]) P2 - PATIENT W/MILD SYST DISEASE, QK - EXHAUSTER ENGINEER 2-4 CNCRNT ANES PROC, QX - FLASK MAKER SVC W/ MD MED DIRECTION
--- NOTE | 2025-03-02 09:29 | P.ANES_ITS ---
Anesthesia Charges Start Date/Time Anesthesia Start Date: 03/02/25 Anesthesia Start Time: 07:20 Stop Date/Time Anesthesia Stop Date: 03/02/25 Anesthesia Stop Time: 07:42 Coding CPT Codes CPT Codes: ROSEANNA LWR INTST NDSC NOS - 68226 ([id number]) P2 - PATIENT W/MILD SYST DISEASE, QK - STAGE TECHNICIAN 2-4 CNCRNT ANES PROC, QX - DRY CLEANING CHECKER SVC W/ MD MED DIRECTION
--- NOTE | 2025-03-02 09:29 | W.ANESCHARGE ---
Anesthesia Charges Start Date/Time Anesthesia Start Date: 03/02/25 Anesthesia Start Time: 07:20 Stop Date/Time Anesthesia Stop Date: 03/02/25 Anesthesia Stop Time: 07:42 Coding CPT Codes CPT Codes: ROSEANNA LWR INTST NDSC NOS - 67499 ([id number]) P2 - PATIENT W/MILD SYST DISEASE, QK - BALING PRESS OPERATOR 2-4 CNCRNT ANES PROC, QX - COAL HANDLER SVC W/ MD MED DIRECTION
== END 2025-03-02 06:22 | disposition home or self-care (01) ==
LOC: OP CLINIC 06:22
PROVIDERS: PCP Family Medicine; Visit Provider Internal Medicine
DX: Z12.11 Encounter for screening for malignant neoplasm of colon (principal); D12.2 Benign neoplasm of ascending colon
CPT/HCPCS: 00811; 00812; 45380; 88305; J2704